=== PATIENT | male | born 1990 | race Caucasian/White ===

== ENCOUNTER 2019-05-22 09:41 | Emergency (ER) | payer OTHER ==
[2019-05-22 10:05] VITALS: BP 108/68
--- NOTE | 2019-05-22 10:37 | ED Physician Documentation ---
PD HPI LOWER EXT INJURY - Stated complaint Stated Complaint: LT ANKLE PX - Chief complaint Chief Complaint: Ext Problem - History obtained from History obtained from: Patient - History of Present Illness PD HPI LOW EXT INJURY LOCATION: Left, Foot Type of injury: Twist Where injury occurred: Street Timing - onset: Yesterday Timing - duration: Hours Timing - details: Abrupt onset, Still present Improved by: Rest Worsened by: Moving, Palpating Associated symptoms: No: Weakness, Numbness, Tingling Contributing factors: No: Anticoagulated Similar symptoms before: Has not had sx before Recently seen: Not recently seen - Additional information Additional information: 29-year-old male was on a run when he ran along the road and twisted his foot. He states that he has pain in the dorsum of the foot over the cuboid and is only able to bear weight on his heel. He has been hopping around. Review of Systems Constitutional: denies: Fever Eyes: denies: Decreased vision Ears: denies: Ear pain Nose: denies: Congestion Respiratory: denies: Cough GI: denies: Vomiting PD PAST MEDICAL HISTORY - Past Medical History Past Medical History: No - Past Surgical History Past Surgical History: No - Present Medications Home Medications: Ambulatory Orders Medication Instructions Recorded Confirmed No Known Home Medications 05/22/19 05/22/19 - Allergies Allergies/Adverse Reactions: Allergies Allergy/AdvReac Type Severity Reaction Status Date / Time No Known Drug Allergies Allergy Verified 05/22/19 09:59 - Social History Does the pt smoke?: No Smoking Status: Never smoker Does the pt drink ETOH?: No Does the pt have substance abuse?: No - Immunizations Immunizations are current?: Yes PD ED PE NORMAL - Vitals Vital signs reviewed: Yes (normal ) - General General: Alert and oriented X 3, No acute distress, Well developed/nourished - HEENT HEENT: Atraumatic, PERRL, EOMI - Respiratory Respiratory: No respiratory distress - Derm Derm: Normal color, Warm and dry, No rash - Extremities Extremities: No deformity, No edema, Other (There is some abrasion to the dosum of the left foot and tenderenss over the cuboid and the proximal 5th. There is no tenderness to the malleoli) - Neuro Neuro: Alert and oriented X 3, datawarehouse developer 2-12 intact, No motor deficit, No sensory de ficit, Normal speech Eye Opening: Spontaneous Motor: Obeys Commands Verbal: Oriented GCS Score: 15 - Psych Psych: Normal mood, Normal affect Results - Vitals Vitals: Vital Signs - 24 hr 05/22/19 09:53 Temperature 36.8 C Heart Rate 70 Respiratory 16 Rate Blood Pressure 108/68 O2 Saturation 97 Oxygen O2 Source Room air - Rads (name of study) foot Radiology: Prelim report reviewed (Impression: 1. Minimal bony irregularity of the tuft of the first distal phalanx could reflect nondisplaced fracture of the patient is point tender in this area. Otherwise no acute osseous abnormality.), EMP read indepedently, See rad report Procedures - Splint (location) left foot Splint applied by: Tech Type of splint: Fiberglass, Posterior Other: Patient tolerated well, No complications, Neurovascular intact, Good alignment, Crutches provided PD MEDICAL DECISION MAKING - ED course Complexity details: reviewed results, re-evaluated patient, considered differential, d/w patient Departure - Departure Disposition: 01 Home, Self Care Clinical Impression: Sprain of foot, left Qualifiers: Encounter type: initial encounter Qualified Code(s): S93.602A - Unspecified sprain of left foot, initial encounter Condition: Stable Instructions: ED Sprain Foot [facility] Forms: Activity restrictions
--- NOTE | 2019-05-22 10:40 | XRAY Report ---
Reason: fall, pain, brusing Procedure Date: 05/22/2019 Accession Number: [id number] / [id number] Procedure: XR - Foot 3 View LT CPT Code: FULL RESULT: EXAM: LEFT FOOT RADIOGRAPHY EXAM DATE: 05/22/2019 10:04 AM. CLINICAL HISTORY: Fall, pain, brusing. COMPARISON: None. TECHNIQUE: 3 views. FINDINGS: Bones: Minimal bony irregularity at the tuft of the first distal phalanx could reflect acute nondisplaced fracture if the patient is point tender in this area. Otherwise no acute osseous abnormality. Joints: Unremarkable. Soft Tissues: Unremarkable. IMPRESSION: 1. Minimal bony irregularity of the tuft of the first distal phalanx could reflect nondisplaced fracture if the patient is point tender in this area. Otherwise no acute osseous abnormality. RADIA
== END 2019-05-22 10:58 | disposition home or self-care (01) ==
LOC: ED 09:41
DX: S93.602A Unspecified sprain of left foot, initial encounter (principal); S90.812A Abrasion, left foot, initial encounter; X50.1XXA Overexertion from prolonged static or awkward postures, initial encounter; Y93.02 Activity, running; Y92.413 State road as the place of occurrence of the external cause
CPT/HCPCS: 29515; 99282

== ENCOUNTER 2019-09-06 11:07 | Emergency (ER) | payer OTHER ==
[2019-09-06 11:13] VITALS: BP 147/96
[2019-09-06] MEDS ORDERED: DEXAMETHASONE 10 MG/ML VIAL IM STA (12:41)
[2019-09-06] MEDS ORDERED: oxyCODONE 5 MG TABLET PO STA (12:41)
--- NOTE | 2019-09-06 12:43 | ED Physician Documentation ---
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 He had a laminectomy, L5-S1 a few years ago and about once a year gets flares of back pain. The rest of the time his back does not hurt at all. He has some chronic numbness on the lateral side of the left thigh. No new weakness, numbness, tingling, saddle anesthesia, incontinence, or fevers. The pain started today. There is no inciting activity.) Review of Systems Constitutional: denies: Fever, Chills Cardiac: reports: Reviewed and negative Respiratory: reports: Reviewed and negative PD PAST MEDICAL HISTORY - Past Surgical History Past Surgical History: No - Present Medications Home Medications: Ambulatory Orders Medication Instructions Recorded Confirmed Oxycodone HCl/Acetaminophen 1 - 2 each PO Q6H PRN #14 tablet 09/06/19 [Percocet 5-325 mg Tablet] - Allergies Allergies/Adverse Reactions: Allergies Allergy/AdvReac Type Severity Reaction Status Date / Time No Known Drug Allergies Allergy Verified 05/22/19 09:59 - Social History Does the pt smoke?: No Smoking Status: Never smoker Does the pt drink ETOH?: No Does the pt have substance abuse?: No - Immunizations Immunizations are current?: Yes PD ED PE NORMAL - Vitals Vital signs reviewed: Yes - General General: Alert and oriented X 3, Other (Comfortable at rest but winces with motion) - Abdomen Abdomen: Soft, Non tender - Back Back: No spinal TTP, Other (A little bit of numbness on the lateral side of the left Calf which she says is chronic and unchanged from usual. Otherwise, The patient has equal and normal Achilles and patellar reflexes bilaterally. Normal sensation in all areas of the legs. Patient denies saddle anesthesia. Normal strength in flexion-extension at the ankles, knees, and flexion of the hips.) - Neuro Neuro: Alert and oriented X 3, Normal speech Results - Vitals Vitals: Vital Signs - 24 hr 09/06/19 11:11 Temperature 36.4 C L Heart Rate 62 Respiratory 18 Rate Blood Pressure 147/96 H O2 Saturation 100 Oxygen O2 Source Room air Departure - Departure Disposition: 01 Home, Self Care Clinical Impression: Back pain Qualifiers: Back pain location: low back pain Chronicity: acute Back pain laterality: bilateral Sciatica presence: without sciatica Qualified Code(s): M54.5 - Low back pain Condition: Good Record reviewed to determine appropriate education?: Yes Instructions: ED Low Back Pain Injury Prescriptions: Oxycodone HCl/Acetaminophen [Percocet 5-325 mg Tablet] 1 - 2 each PO Q6H PRN #14 tablet PRN Reason: pain Comments: Call your doctor to arrange a follow-up appointment, make the next available appointment. In the interim, return anytime if worse or if new symptoms de velop. Do not drink or drive while taking narcotic pain medication. Note that many narcotic pain relievers also contain Tylenol/acetaminophen. Please ensure that your total dose of acetaminophen from all sources does not exceed 3 g (3000 mg) per day. You may get constipated while on this medication. Take a stool softener such as Colace twice a day while you are on it. Also add an [id number]-[id number] laxative such as senna or MiraLAX on any day that you do not have a bowel movement. If you received a narcotic pain medication or sedative while in the emergency department, do not drive for the next 24 hours. Your blood pressure was elevated today on check into the emergency department. This does not mean that you have hypertension, it is a common phenomenon to come to the emergency department and have elevated blood pressure. I recommend that you see your primary care physician within the week to have it rechecked when you are feeling better. Forms: Activity restrictions
== END 2019-09-06 13:10 | disposition home or self-care (01) ==
LOC: ED 11:07
DX: M54.5 Low back pain (principal); R20.0 Anesthesia of skin; R03.0 Elevated blood-pressure reading, without diagnosis of hypertension
CPT/HCPCS: 96372; 99283; A9270

== ENCOUNTER 2020-10-09 04:29 | Emergency (ER) | payer OTHER ==
[2020-10-09] MEDS ORDERED: KETOROLAC 60 MG/2 ML VIAL IM STA (05:06)
[2020-10-09] MEDS ORDERED: CHERRY SYRUP 10 ML UDC PO ONE (05:06)
[2020-10-09] MEDS ORDERED: DEXAMETHASONE 10 MG/ML VIAL PO STA (05:06)
--- NOTE | 2020-10-09 05:10 | ED Physician Documentation ---
PD HPI BACK PAIN - Stated complaint Stated Complaint: BACK PX - Chief complaint Chief Complaint: Back Pain - History obtained from History obtained from: Patient - History of Present Illness Timing - onset: Last night Timing - duration: Hours Timing - details: Abrupt onset, Still present Location: Lower, Right Quality: Pain, Spasm, Sharp, Similar to prior episodes Associated symptoms: No: Fever, Weakness, Numbness, Incontinent of urine, Unable to urinate, Hematuria, Incontinent of stool Improves with: Rest, Ice, Position Worsened by: Movement, Lifting, Twisting Contributing factors: Lifting, Other (work related) Similar symptoms before: Diagnosis (lumbar disc disease s/p laminectomy) Recently seen: Clinic - Additional information Additional information: 33-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 He indicates that the train is on wheels and occasionally the wheels will get jammed and they will have to put a strap around the train to get it moving again. He did this and felt a strain in his back when he did this. He was able to get home and as the night has worn on his symptoms of progressed to where he is not able to sleep and he is come to the emergency department for evaluation. He has pain radiating down his right leg and he denies any numbness or tingling. He denies any saddle anesthesia or change in his bowel or bladder. He has not been sick recently. He has previously had an L4-5 laminectomy. Review of Systems Constitutional: denies: Fever Eyes: denies: Decreased vision Ears: denies: Ear pain Nose: denies: Rhinorrhea / runny nose, Congestion Throat: denies: Sore throat Cardiac: denies: Chest pain / pressure, Palpitations Respiratory: denies: Dyspnea, Cough GI: denies: Abdominal Pain, Nausea, Vomiting, Constipation, Diarrhea : denies: Dysuria, Frequency Skin: denies: Rash Musculoskeletal: reports: Back pain. denies: Neck pain PD PAST MEDICAL HISTORY - Past Surgical History Past Surgical History: Yes Ortho: Other - Present Medications Home Medications: Ambulatory Orders Medication Instructions Recorded Confirmed Cyclobenzaprine [Flexeril] 10 mg PO TID PRN #20 tablet 10/09/20 Oxycodone HCl/Acetaminophen 1 - 2 each PO Q6H PRN #14 tablet 10/09/20 [Percocet 5-325 mg Tablet] - Allergies Allergies/Adverse Reactions: Allergies Allergy/AdvReac Type Severity Reaction Status Date / Time No Known Drug Allergies Allergy Verified 05/22/19 09:59 - Social History Does the pt smoke?: No Smoking Status: Never smoker Does the pt drink ETOH?: No Does the pt have substance abuse?: No - Immunizations Immunizations are current?: Yes PD ED PE NORMAL - Vitals Vital signs reviewed: Yes (Hypertensive) - General General: Alert and oriented X 3, No acute distress, Well developed/nourished - HEENT HEENT: Atraumatic, PERRL, EOMI - Respiratory Respiratory: No respiratory distress - Back Back: No CVA TTP, No spinal TTP, Other (There is pain to palpation of the paraspinous muscles on the right lower lumbar spine area. Muscles are tense wit h spasm.) - Derm Derm: Normal color, Warm and dry, No rash - Extremities Extremities: No deformity, No edema - Neuro Neuro: Alert and oriented X 3, clinical research management associate 2-12 intact, No motor deficit, No sensory deficit, Normal speech Eye Opening: Spontaneous Motor: Obeys Commands Verbal: Oriented GCS Score: 15 - Psych Psych: Normal mood, Normal affect Results - Vitals Vitals: Vital Signs - 24 hr 10/09/20 04:32 Temperature 36.4 C L Heart Rate 77 Respiratory 18 Rate Blood Pressure 145/98 H O2 Saturation 96 Oxygen O2 Source Room air PD MEDICAL DECISION MAKING - ED course Complexity details: reviewed old records, reviewed results, re-evaluated patient, considered differential, d/w patient ED course: 30-year-old male with chronic low back pain has an exacerbation of his pain related to a lifting injury at work. He has sciatica to the right side and he is administered dexamethasone 10 mg orally and Toradol 60 mg IM. We will place on some pain medication a muscle relaxant give him a note for 5 days for work and have him follow-up with his primary. Departure - Departure Disposition: 01 Home, Self Care Clinical Impression: Sciatica Qualifiers: Laterality: right Qualified Code(s): M54.31 - Sciatica, right side Condition: Stable Instructions: ED Sciatica Follow-Up: NISHANT Dee [Provider Group] Prescriptions: Cyclobenzaprine [Flexeril] 10 mg PO TID PRN #20 tablet PRN Reason: Spasms Oxycodone HCl/Acetaminophen [Percocet 5-325 mg Tablet] 1 - 2 each PO Q6H PRN #14 tablet PRN Reason: pain
[2020-10-09 05:48] VITALS: BP 140/78
== END 2020-10-09 05:48 | disposition home or self-care (01) ==
LOC: ED 04:29
DX: M54.31 Sciatica, right side (principal)
CPT/HCPCS: 96374; 99283; 99284; A9270

== ENCOUNTER 2020-10-15 17:10 | Emergency (ER) | payer OTHER ==
[2020-10-15 17:29] VITALS: BP 154/101
--- NOTE | 2020-10-15 17:58 | ED Physician Documentation ---
PD HPI BACK PAIN - Stated complaint Stated Complaint: LOW BACK PAIN - Chief complaint Chief Complaint: Back Pain - History obtained from History obtained from: Patient - History of Present Illness Timing - onset: How many weeks ago (1) Timing - duration: Weeks (1) Timing - details: Gradual onset Pain level max: 9 Pain level now: 9 Location: Lower, Right Quality: Pain, Spasm, Similar to prior episodes Associated symptoms: No: Fever, Weakness, Numbness, Incontinent of urine, Unable to urinate, Hematuria, Incontinent of stool Improves with: Rest Worsened by: Movement Contributing factors: Lifting. No: Twisting, Trauma, Anticoagulated, Cancer, IVDA, Out of meds Recently seen: Clinic ([place] seen here last week for same. States flexeril and motrin are not helping. Out of oxycodone. Pain radiates down the R leg.) Review of Systems Constitutional: denies: Fever, Chills Nose: denies: Rhinorrhea / runny nose, Congestion Respiratory: denies: Cough GI: denies: Abdominal Pain, Nausea, Vomiting, Diarrhea : denies: Dysuria, Frequency, Hesitancy Skin: denies: Rash Musculoskeletal: denies: Neck pain Neurologic: denies: Focal weakness, Numbness, Headache PD PAST MEDICAL HISTORY - Past Medical History Past Medical History: No - Past Surgical History Past Surgical History: Yes Ortho: Other - Present Medications Home Medications: Ambulatory Orders Medication Instructions Recorded Confirmed Cyclobenzaprine [Flexeril] 10 mg PO TID PRN #20 tablet 10/09/20 Oxycodone HCl/Acetaminophen 1 - 2 each PO Q6H PRN #14 tablet 10/09/20 [Percocet 5-325 mg Tablet] Oxycodone HCl/Acetaminophen 1 - 2 each PO Q6H PRN #14 tablet 10/15/20 [Percocet 5-325 mg Tablet] methocarbamoL [Robaxin] 500 mg PO Q6H PRN #20 tablet 10/15/20 predniSONE [Deltasone] 10 mg PO [id number] #42 tab 10/15/20 - Allergies Allergies/Adverse Reactions: Allergies Allergy/AdvReac Type Severity Reaction Status Date / Time No Known Drug Allergies Allergy Verified 10/15/20 17:29 - Social History Does the pt smoke?: No Smoking Status: Never smoker Does the pt drink ETOH?: No Does the pt have substance abuse?: No - Immunizations Immunizations are current?: Yes - POLST Patient has POLST: No PD ED PE NORMAL - Vitals Vital signs reviewed: Yes - General General: Alert and oriented X 3, No acute distress, Well developed/nourished - HEENT HEENT: Moist mucous membranes - Neck Neck: Supple, no meningeal sign - Cardiac Cardiac: RRR - Respiratory Respiratory: No respiratory distress, Clear bilaterally - Abdomen Abdomen: Soft, Non tender - Back Back: No spinal TTP (No midline tenderness to palpation or percussion. No step- off or deformity. Paraspinal spasm low lumbar right greater than left.) - Derm Derm: Warm and dry - Extremities Extremities: Other (Normal bilateral lower extremity patellar and ankle jerk reflexes. Normal great toe extension bilaterally. no saddle anesthesia) - Neuro Neuro: Alert and oriented X 3 - Psych Psych: Normal mood, Normal affect Results - Vitals Vitals: Vital Signs - 24 hr 10/15/20 17:27 Temperature 36.6 C Heart Rate 82 Respiratory 18 Rate Blood Pressure 154/101 H O2 Saturation 95 Oxygen O2 Source Room air PD MEDICAL DECISION MAKING - ED course Complexity details: reviewed old records, re-evaluated patient, considered differential (No cauda equina, no spinal epidural abscess, no fracture, no aortic dissection or evidence of aneursym rupture), d/w patient ED course: 30-year-old male presents to the emergency department with low back pain. We will change him from Flexeril to Robaxin. We will place him on pain medication. No evidence of epidural abscess, cauda equina. Ambulating well. Patient counseled regarding signs and symptoms for which I believe and urgent re- evaluation would be necessary. Patient with good understanding of and agreement to plan and is comfortable going home at this time This document was made in part using voice recognition software. While efforts are made to proofread this document, sound alike and grammatical errors may occur. Departure - Departure Disposition: Home, Self Care Clinical Impression: Sciatica Qualifiers: Laterality: right Qualified Code(s): M54.31 - Sciatica, right side Condition: Good Instructions: ED Sciatica Follow-Up: KIMBER PINA DO [Primary Care Provider] - Within 3 Days Prescriptions: predniSONE [Deltasone] 10 mg PO [id number] #42 tab Oxycodone HCl/Acetaminophen [Percocet 5-325 mg Tablet] 1 - 2 each PO Q6H PRN #14 tablet PRN Reason: pain methocarbamoL [Robaxin] 500 mg PO Q6H PRN #20 tablet PRN Reason: back spasm Comments: Follow-up with your doctor for further care. Return if you worsen. Do not drive or operate heavy machinery while taking the Robaxin or oxycodone. Do not drink alcohol or drive while on narcotic pain medicine. Note that many narcotic pain relievers also contain tylenol/acetaminophen. Please ensure that your total dose of acetaminophen from all sources does not exceed 3 grams (3000mg) per day. You may constipated on this medication, take a stool softener such as "Colace" twice a day while you are on it. Also recommend a lnjq-avk-vtmvnda laxative such as senna or MiraLAX any day that you do not have a bowel movement. If you received narcotic pain medication in the emergency department, do not drive or operate machinery for the next 24 hours. Discharge Date/Time: 10/15/20 18:13
[2020-10-15] MEDS: CHERRY SYRUP 10 ML UDC PO ONE (17:59)
[2020-10-15] MEDS: methocarbamoL 500 MG TABLET PO STA (17:59)
[2020-10-15] MEDS: oxyCODONE 5 MG TABLET PO STA (17:59)
[2020-10-15] MEDS: DEXAMETHASONE 10 MG/ML VIAL PO STA (17:59)
== END 2020-10-15 18:13 | disposition home or self-care (01) ==
LOC: ED 17:10
DX: M54.41 Lumbago with sciatica, right side (principal)
CPT/HCPCS: 99283; 99284; A9270

== ENCOUNTER 2020-10-19 08:14 | Outpatient (CLI) | payer OTHER ==
--- NOTE | 2020-10-19 09:48 | MRI Report ---
PROCEDURE: Lumbar Spine W/WO INDICATIONS: Low back pain. CONTRAST: IV CONTRAST: Gadavist ml: 10 TECHNIQUE: Noncontrast sagittal T1 spin echo and T2 fast spin echo, sagittal STIR, axial T1 and T2 fast spin ech o through the lumbar spine. In cases with scoliosis, additional coronal T2 fast spin echo may be per formed. After the administration of contrast, sagittal and axial T1 spin echo with fat saturation th rough the lumbar spine. COMPARISON: None. FINDINGS: Image quality: Excellent. Alignment and curvature: Normal lumbar vertebral body height and alignment. Marrow: No suspicious focal marrow signal abnormality or bone marrow edema. Spinal cord: Normal position and appearance of the conus. Regional soft tissues: No abnormal enhancem ent in the soft tissues. T12-L1: No spinal canal or neural foraminal stenosis. L1-L2: No spinal canal or neural foraminal stenosis. L2-L3: Diffuse disc bulge and a superimposed broad-based posterior disc extrusion most pronounced in the right paracentral and subarticular zones. There is overall moderate spinal canal stenosis. Sig nificant displacement with probable impingement of the descending right L3 nerve roots within the rig ht subarticular zone (series 701 image 31). Probable components of the disc bulge contribute to trace r or foraminal narrowing. L3-L4: No spinal canal stenosis. Foraminal components of a shallow disc bulge contribute to mild bi lateral foraminal stenosis. L4-L5: Disc bulge flattens the ventral thecal sac. Disc material abuts and may slightly displace th e descending L5 nerve roots within the subarticular zones. Foraminal components of the disc bulge and degenerative to mild bilateral foraminal stenosis. L5-S1: Postsurgical changes of right L5-S1 hemilaminectomy. No abnormal enhancement or fluid collecti on within the laminectomy defect. Diffuse disc bulge flattens and indents the ventral thecal sac slig htly. Disc material abuts and displaces the bilateral descending S1 nerve roots, left greater the rig ht. Mild enlargement of the left S1 nerve roots in the left subarticular zone which may indicate an e lement of impingement. Foraminal components of the disc bulge and posterior ossific ridging of the en dplates combine to produce mild bilateral neural foraminal stenosis, in conjunction with facet hypert rophy and neural foraminal collapse related to disc height loss. IMPRESSION: Moderate spinal canal stenosis at L2-L3 due to disc bulge and disc extrusion. Significant displacemen t of the descending right L3 nerve roots with suspected impingement. Correlate for any right L3 radic ular symptoms. Status post right L5-S1 hemilaminectomy, presumably for discectomy. Recurrent disc bulge and protrusi on with mass effect upon the descending left greater than right S1 nerve roots. Correlate for any cor responding S1 radicular symptoms. Reviewed by: Reji Christian MD on 10/19/2020 9:46 AM PST Approved by: Reji Christian MD on 10/19/2020 9:46 AM PST Station ID: [id number]
== END 2020-10-19 08:15 | disposition home or self-care (01) ==
LOC: DI 08:14
DX: M51.26 Other intervertebral disc displacement, lumbar region (principal); M48.061 Spinal stenosis, lumbar region without neurogenic claudication; M48.07 Spinal stenosis, lumbosacral region
CPT/HCPCS: 72158; A9585

== ENCOUNTER 2021-04-26 08:17 | Emergency (ER) | payer OTHER ==
--- OUTSIDE RECORDS SUMMARY | 2021-04-26 08:19 | EXTERNAL MEDICAL SUMMARY RPT | Continuity of Care Document ---
:1990 Demographics Phone Unavailable Preferred Language Armenian Marital Status Unknown Advent Affiliation Unknown Race Unknown Ethnic Group Unknown Author Organization [place] Address [address] [phone] Phone Care Team Providers Name Role Phone [facility] Unavailable Unavailable [facility] Unavailable Unavailable Allergies Encounters Medications date description facility 20210322 {21 (Methylprednisolone 4 MG Oral Table t) } [facility] 20210322 Diazepam 10 MG Oral Tablet [facility] ital Problems date description facility [id number] Other specified postprocedural states [facility] [id number] Other intervertebral disc displacement, lumbar region [facility] [id number] Contact with and (suspected) exposure t o COVID-19 [facility] Procedures date description facility 20210322 [facility] [id number] [facility] 20210322 Diagnosis [facility] [id number] [facility] [id number] [facility] [id number] [facility] 20210211 [facility] Results Vital Signs date measurement value source 20210211 temperature_standard 97.3 F 20210211 temperature_metric 36.28 C 20210211 heart_rate 61 /min 20210212 temperature_standard 97 F 20210212 temperature_metric 36.11 C 20210212 respiration_rate 16 /min 20210212 heart_rate 60 /min 20210212 BP_systolic 121 mm[Hg] 20210212 BP_diastolic 66 mm[Hg] 20210212 respiration_rate 16 /min 20210322 weight_standard 97.52 lb 20210322 weight_metric 44.24 kg 20210322 temperature_standard 98.7 F 20210322 temperature_metric 37.06 C 20210322 height_standard 70 in 20210322 height_metric 177.8 cm 20210322 heart_rate 67 /min 20210322 BP_systolic 142 mm[Hg] [id number] BP_diastolic 87 mm[Hg] 20210322 BMI 30.8 kg/m2
--- OUTSIDE RECORDS SUMMARY | 2021-04-26 08:50 | EXTERNAL MEDICAL SUMMARY RPT | Continuity of Care Document ---
:1990 Demographics Phone Unavailable Preferred Language Brazilian Marital Status Unknown Gnosticist Affiliation Unknown Race Unknown Ethnic Group Unknown Author Organization [place] Address [address] [phone] Phone Care Team Providers Name Role Phone Billow Unavailable Unavailable High Unavailable Unavailable Allergies Encounters Medications date description facility 20210322 {21 (Methylprednisolone 4 MG Oral Table t) } [facility] 20210322 Diazepam 10 MG Oral Tablet [facility] ital Problems date description facility [id number] Other specified postprocedural states [facility] [id number] Other intervertebral disc displacement, lumbar region [facility] [id number] Contact with and (suspected) exposure t o COVID-19 [facility] Procedures date description facility [id number] [facility] [id number] [facility] [id number] Diagnosis [facility] [id number] [facility] [id number] [facility] [id number] [facility] [id number] [facility] Results Vital Signs date measurement value source [...] heart_rate 67 /min 20210322 BP_systolic 142 mm[Hg] [id number] BP_diastolic 87 mm[Hg] 20210322 BMI 30.8 kg/m2
--- NOTE | 2021-04-26 09:29 | ED Physician Documentation ---
History of Present Illness - Stated complaint Stated Complaint: LT LEG PX - Chief complaint Chief Complaint: Ext Problem - History obtained from History obtained from: Patient - Additonal information Additional information: 31-year-old man with past medical history of lumbar disc issues status post discectomy on Thursday presents with left calf pain developing gradual in onset since Thursday with erythema to the medial calf. He is ambulatory on it but it has progressively worsened, is constant, aching, mild at present 1 out of 10. He is concerned he has a DVT. No prior history of clots, no family history of coagulopathy, not on hormones. Denies shortness of breath, cough, chest pain, back pain. Urinating and pooping normally. Patient has been active daily since the surgery and states that he gets at least 4000 steps a day. Review of Systems Ten Systems: 10 systems reviewed and negative Constitutional: denies: Fever Cardiac: denies: Chest pain / pressure Respiratory: denies: Dyspnea, Cough, Hemoptysis Musculoskeletal: reports: Extremity pain, Extremity swelling. denies: Back pain PD PAST MEDICAL HISTORY - Past Surgical History Past Surgical History: Yes Ortho: Other - Present Medications Home Medications: Ambulatory Orders Medication Instructions Recorded Confirmed Cyclobenzaprine [Flexeril] 10 mg PO TID PRN #20 tablet 10/09/20 04/26/21 Oxycodone HCl/Acetaminophen 1 - 2 each PO Q6H PRN #14 tablet 10/15/20 04/26/21 [Percocet 5-325 mg Tablet] Gabapentin [Neurontin] 1 tab PO TID 04/26/21 04/26/21 methylPREDNISolone [Medrol Dose 4 mg PO DAILY 04/26/21 04/26/21 Pack] - Allergies Allergies/Adverse Reactions: Allergies Allergy/AdvReac Type Severity Reaction Status Date / Time No Known Drug Allergies Allergy Verified 04/26/21 08:31 - Social History Does the pt smoke?: No Smoking Status: Former smoker Does the pt drink ETOH?: No Does the pt have substance abuse?: No - Immunizations Immunizations are current?: Yes - POLST Patient has POLST: No PD ED PE NORMAL - Vitals Vital signs reviewed: Yes - General General: Alert and oriented X 3, No acute distress, Well developed/nourished - HEENT HEENT: Atraumatic, PERRL, EOMI - Neck Neck: Supple, no meningeal sign - Cardiac Cardiac: RRR - Respiratory Respiratory: No respiratory distress, Clear bilaterally - Derm Derm: Normal color, Warm and dry - Extremities Extremities: No deformity, Other (Mild swelling to left calf compared to the right. mild erythema to the left calf with point tenderness to the medial mid calf.) - Neuro Neuro: Alert and oriented X 3 - Psych Psych: Normal mood, Normal affect Results - Vitals Vitals: Vital Signs - 24 hr 04/26/21 04/26/21 08:22 09:27 Temperature 37.0 C Heart Rate 90 65 Respiratory 16 Rate Blood Pressure 137/87 H O2 Saturation 94 97 Oxygen O2 Source Room air PD MEDICAL DECISION MAKING - ED course ED course: 31-year-old man presents for DVT evaluation after developing calf pain after surgery. Will obtain ultrasound to evaluate. I discussed with him that if the ultrasound is negative he will need to have a repeat ultrasound in 1 week. Strict return precautions discussed. Departure - Departure Disposition: 01 Home, Self Care Clinical Impression: Pain in extremity, Superficial thrombophlebitis Condition: Good Instructions: ED ROBIN Comments: You are seen in the emergency department for evaluation for DVT. Your ultrasound Did not show a DVT, but you do have superficial thrombophlebitis. You should have a repeat ultrasound in 1 week. Return to the emergency department immediately if you develop chest pain, shortness of breath, cough, find that there is blood in a cough, or if you have pain with breathing. Follow-up with your primary doctor. Return if you have any other new or worsening symptoms or other concerns
--- NOTE | 2021-04-26 11:15 | Ultrasound Report ---
PROCEDURE: Duplex Ext Veins Left INDICATIONS: r/o DVT TECHNIQUE: Real-time imaging, as well as color and pulse Doppler interrogation, were performed of the lower extr emity deep veins from the inguinal ligament to the popliteal fossa. COMPARISON: None. FINDINGS: There is a superficial thrombophlebitis in the proximal and mid lower leg, with echogenic intraluminal thrombus seen in the greater saphenous vein at this location. The deep veins of the left lower extremity appear normally compressible, and free of intraluminal thrombus. Color and pulse Do ppler demonstrate normal phasic intraluminal flow. There is normal augmentation response to distal c ompression maneuver. IMPRESSION: No evidence of deep venous thrombosis. There is superficial thrombophlebitis in the left greater saphenous vein at the level spanning the lo wer leg from proximal to distal. Reviewed by: Reji Christian MD on 04/26/2021 11:13 AM PDT Approved by: Reji Christian MD on 04/26/2021 11:13 AM PDT Station ID: [id number]
[2021-04-26 11:16] VITALS: BP 135/75
== END 2021-04-26 11:30 | disposition home or self-care (01) ==
LOC: ED 08:17
DX: I80.02 Phlebitis and thrombophlebitis of superficial vessels of left lower extremity (principal); Z87.891 Personal history of nicotine dependence
CPT/HCPCS: 99282; 99284